=== PATIENT | female | born 1990 | race American Indian/Alaskan Native ===

== ENCOUNTER 2017-06-15 19:50 | Outpatient (CLI) | payer MEDICAID ==
[2017-06-15 21:22] VITALS: BP 95/53
--- NOTE | 2017-06-16 07:27 | Ultrasound Report ---
ULTRASOUND OB LIMITED History: well being, leaking of fluids, oligohydramnios Technique: Transabdominal ultrasound with Doppler interrogation. Gestation: Single Position: Cephalic Amniotic Fluid: Normal LAINA = 8.9 cm Placenta: Fundal Placental Grade: 1 Heart Rate: 143 BPM
== END 2017-06-15 22:00 | disposition home or self-care (01) ==
LOC: TRG 19:50
PROVIDERS: ATTEND Obstetrics & Gynecology
DX: O47.1 False labor at or after 37 completed weeks of gestation (principal); Z3A.39 39 weeks gestation of pregnancy
CPT/HCPCS: 76815